=== PATIENT | male | born 1980 | race Caucasian/White ===

== ENCOUNTER 2017-12-11 16:09 | Emergency (ER) | payer OTHER ==
[~2017-12-11] VITALS: Ht 165.1 cm; Wt 67.1 kg
[2017-12-11 16:31] VITALS: BP 161/107
[2017-12-11] MEDS ORDERED: ACETAMINOPHEN ES 500 MG TABLET PO ONE (17:00)
[2017-12-11] MEDS ORDERED: ACETAMINOPHEN ES 500 MG TABLET ONE (17:03)
== END 2017-12-11 17:06 ==
LOC: ER 16:18
DX: Z02.89 Encounter for other administrative examinations (principal); R07.81 Pleurodynia; M79.641 Pain in right hand; M54.9 Dorsalgia, unspecified; Z79.82 Long term (current) use of aspirin; Z88.6 Allergy status to analgesic agent
CPT/HCPCS: A4606; Z7610